=== PATIENT | male | born 1955 | race African-American/Black ===

== ENCOUNTER 2017-01-07 06:53 | Day surgery (SDC) | payer OTHER ==
[2017-01-04 13:55] LABS: BASOPHILS 0.6 %; BASOPHILS ABSOLUTE 0.04 10/3/uL (0.0-0.16); EOSINOPHILS 1.1 %; EOSINOPHILS ABSOLUTE 0.08 10/3/uL (0.0-0.53); HEMATOCRIT 42.6 % (40.0-51.0); HEMOGLOBIN 15.1 g/dL (13.6-17.8); IMMATURE GRANULOCYTES 0.1 %; IMMATURE GRANULOCYTES ABSOLUTE 0.01 10/3/uL (0.0-0.11); LYMPHOCYTES ABSOLUTE 2.68 10/3/uL (0.67-4.30); MANUAL DIFF NO %; MEAN CORPUS HGB CONC 35.4 g/dL (32.0-36.0); MEAN CORPUSCULAR VOLUME 95.9 fL (80-100); MEAN PLATELET VOLUME 10.3 fL (9.2-13.0); MONOCYTES 9.5 %; MONOCYTES ABSOLUTE 0.67 10/3/uL (0.21-1.20); NEUTROPHILS 50.7 %; NEUTROPHILS ABSOLUTE 3.57 10/3/uL (2.02-8.40); PLATELET COUNT 238 10/3/uL (150-400); RBC DISTRIBUTION WIDTH 14.8 % (12.0-16.0); RED CELL COUNT 4.44 10/6/uL (4.7-6.1); WHITE BLOOD CELLS 7.1 10/3/uL (4.5-10.5)
[2017-01-04 14:20] LABS: A/G RATIO 1.4 (0.7-1.9); ALBUMIN 4.6 G/DL (3.5-5.0); ALKALINE PHOSPHATASE 72 U/L (45-117); BUN (BLOOD UREA NITROGEN) 6 MG/DL (6-23); CHLORIDE, SERUM 101 MMOL/L (96-112); CO2 (CARBON DIOXIDE) 30 MMOL/L (24-34); CREATININE 0.99 MG/DL (0.70-1.30); GFR AFRICAN AMERICAN 96 ML/MIN (>=60); GFR NON AFRICAN AMERICAN 83 ML/MIN (>=60); GLOBULIN 3.2 G/DL (2.5-4.1); GLUCOSE, SERUM 86 MG/DL (60-99); POTASSIUM, SERUM 4.1 MMOL/L (3.5-5.3); PREALBUMIN 27.7 MG/DL (17.0-43.0); SGOT(AST) 48 U/L (5-40); SGPT(ALT) 56 U/L (5-65); SODIUM, SERUM 136 MMOL/L (135-148); TOTAL BILIRUBIN 0.6 MG/DL (0-1.2); TOTAL PROTEIN 7.8 G/DL (6.0-8.5)
--- NOTE | ~2017-01-07 | OP ---
Record Of Operation [facility] [address] [place]. [address] NAME: HUY WERNER : 59 STATUS : [facility]#: [id number] AGE: 61 ADM/REG DATE : 01/07/17 MR#: [id number] REPORT SERV DATE: 01/07/17 DICTATED BY: MANUELITO FRY JR. DATE: 01/07/17 REPORT STATUS : Draft TRANSCRIBED BY: LEON DATE: 01/07/17 DATE OF PROCEDURE: 01/07/2017 SENIOR ADMINISTRATIVE ASSISTANT: Jerod Aguero. PROCEDURE: Repair of left inguinal hernia. PREOPERATIVE DIAGNOSIS: Left inguinal hernia. POSTOPERATIVE DIAGNOSIS: Left inguinal hernia. ANESTHESIA: General. INDICATIONS: The patient presented with increasing symptomatic left inguinal hernia. Repair is indicated. FINDINGS: On exploration of the area, there was evidence of a large cord lipoma and also an adjacent herniation of properitoneal fat. This was adjacent to cord but almost appeared to be coming from a direct defect. This was reduced. This repaired with a tension-free patch repair. Nodes and findings were encountered. PROCEDURE: With adequate general anesthesia, the patient was placed in supine position. The abdomen was prepped and draped sterilely. 0.5% Marcaine was also used for local infiltration of the area. A curved incision was made within the groin. Incision deepened down through the subcutaneous tissues. The Andi fascia was divided and the external oblique was divided from the area of the internal ring toward the external ring. Underlying structure was dissected sharply. The cord was identified and encircled with a Yelitza drain. It was skeletonized and the above-noted findings were encountered. The "lipoma" was excised securing the base with 3-0 Vicryl. Remaining tissue was reduced in the peritoneal cavity and a Parietex ProGrip mesh was utilized for the repair. It was secured medially to the pubic tubercle, superiorly conjoined tendon, and transversalis inferiorly to the inguinal ligament. The precut defect was placed and fixed around the cord at the internal ring. It was trimmed to appropriate size to repair. The external oblique was then closed over this with a running 2-0 Vicryl and the subcutaneous tissues were closed 3-0 Vicryl and skin with dermal Monocryl. Sterile dressings were applied. The patient left the operating room in satisfactory condition. Estimated blood loss 10 mL. JASWANT/LENO Manuelito Fry Jr., M.D. / [id number] Record Of Operation [address] [address] NAME: HUY WERNER : 59 STATUS : [facility] PAT#: [id number] AGE: 61 ADM/REG DATE : 01/07/17 MR#: [id number] REPORT SERV DATE: 01/07/17 DICTATED BY: MANUELITO FRY JR. DATE: 01/07/17 REPORT STATUS : Draft TRANSCRIBED BY: LEON DATE: 01/07/17 CC: Bienvenido Barrett Jr., Pankaj
[~2017-01-07 06:53] MED LIST: CELEBREX2 PO; METHOC500B PO; NEUR100 PO; NORV10 PO; ULTRAM50 PO; VOLT25 PO
== END 2017-01-07 13:38 | disposition home or self-care (01) ==
LOC: SDC 06:53
PROVIDERS: Specialist
PROC: 0VBG0ZZ Excision of Left Spermatic Cord, Open Approach (ICD-10-PCS; 2017-01-07)
PROC: 0YU60JZ Supplement Left Inguinal Region with Synthetic Substitute, Open Approach (ICD-10-PCS; principal; 2017-01-07 07:45)
DX: K40.90 Unilateral inguinal hernia, without obstruction or gangrene, not specified as recurrent (principal); D17.6 Benign lipomatous neoplasm of spermatic cord; I10 Essential (primary) hypertension; E78.5 Hyperlipidemia, unspecified; E78.00 Pure hypercholesterolemia, unspecified; F41.9 Anxiety disorder, unspecified; F32.9 Major depressive disorder, single episode, unspecified; F17.210 Nicotine dependence, cigarettes, uncomplicated; Z85.818 Personal history of malignant neoplasm of other sites of lip, oral cavity, and pharynx; Z86.010 Personal history of colon polyps; Z79.1 Long term (current) use of non-steroidal anti-inflammatories (NSAID); Z79.899 Other long term (current) drug therapy; Z98.890 Other specified postprocedural states
CPT/HCPCS: 71020; 80053; 83036; 84134; 85025; 88304; 93005; C1781; J0690; J1170; J2250; J2405; J2710; J3010